=== PATIENT | male | born 1965 | race Caucasian/White ===

== ENCOUNTER 2024-10-19 17:15 | Emergency (ER) | payer OTHER ==
[2024-10-19] MEDS: Ketorolac 60 MG/2 ML SDV IM ONE (19:30)
== END 2024-10-19 19:33 | disposition home or self-care (01) ==
LOC: JD.ED 17:15
DX: M48.02 Spinal stenosis, cervical region (principal); M54.12 Radiculopathy, cervical region; E78.00 Pure hypercholesterolemia, unspecified; Z79.899 Other long term (current) drug therapy
CPT/HCPCS: 73030; 96372; 99284; J1885